=== PATIENT | male | born 1975 | race Caucasian/White ===

== ENCOUNTER → 2024-04-18 10:55 | Outpatient (BNVA) | payer OTHER, SELFPAY | DX: Z76.89 Persons encountering health services in other specified circumstances (principal) | CPT/HCPCS: 80053; 80061; 85025 ==

== ENCOUNTER → 2024-07-18 12:49 | Outpatient (BNVA) | payer OTHER, SELFPAY | DX: M06.9 Rheumatoid arthritis, unspecified (principal) | CPT/HCPCS: 85651; 86140; 86160; 86162; 86200; 86235; 86255; 86376; 86431 ==

== ENCOUNTER 2024-11-28 11:38 | Outpatient (CLI) | payer OTHER, SELFPAY ==
[2024-11-28 12:31] LABS: Basophils % 0.4 %; Eosinophils # 0.3 10^3/uL (0.0-0.8); Hematocrit 44.2 % (37-53); Lymphocytes % 33.2 %; Mean Corpuscular HGB Conc 34.2 g/dL (30-55); Mean Corpuscular Hemoglobin 31.5 pg (27-33); Mean Corpuscular Volume 92.1 fl (82-101); Mean Platelet Volume 9.9 fL (7.4-10.4); Monocytes # 0.7 10^3/uL (0.2-0.9); Monocytes % 7.2 %; Neutrophils # 5.06 10^3/uL (1.8-7.7); Neutrophils % 55.9 %; Nucleated Red Blood Cells % 0 %; Platelet Count 247 10^3/cmm (157-399); Red Cell Distribution Width 12.7 % (12.1-15.1); White Blood Count 9.06 10^3/uL (3.29-11.43)
[2024-11-28 12:46] LABS: Alanine Aminotransferase 14 U/L (0-41); Albumin Level 4.1 g/dL (3.5-5.2); Alkaline Phosphatase 67 U/L (40-130); Aspartate Amino Transferase 13 U/L (0-40); Globulin 2.9 g/dL (1.3-4.6); Glomerular Filtration Rate 102.3 mL/min (90-130); Total Bilirubin 0.4 mg/dL (0.15-1.2)
[2024-11-28 12:52] LABS: Erythrocyte Sedimentation Rate 8 mm/hr (0-10)
[2024-11-28 13:01] LABS: Hepatitis C Virus Antibody Non-Reactive (Nonreactive)
[2024-11-28 13:11] LABS: Hepatitis B Core AB, Total Non-Reactive (Nonreactive); Hepatitis B Surface Antigen Non-Reactive (Nonreactive)
== END 2024-11-28 11:39 | disposition home or self-care (01) ==
PROVIDERS: Visit Provider Internal Medicine Rheumatology
DX: Z79.899 Other long term (current) drug therapy (principal)
CPT/HCPCS: 36415; 80076; 82565; 85025; 85651; 86140; 86480; 86704; 86803; 87340

== ENCOUNTER → 2025-04-03 11:18 | Outpatient (BNVA) | payer OTHER, SELFPAY | DX: R01.1 Cardiac murmur, unspecified (principal) | CPT/HCPCS: 80053; 80061; 83735 ==